=== PATIENT | male | born 1950 | race Caucasian/White ===

== ENCOUNTER 2021-04-07 14:18 | Emergency (ER) | payer MEDICARE, SELFPAY ==
[2021-04-07 14:19] VITALS: BP 147/83; PULSE 67; RESP 18; TEMP 36.6; O2SAT 98; BMI 29.0
--- NOTE | 2021-04-07 14:19 | NURSING ---
NO OLD EKGS
--- NOTE | 2021-04-07 14:41 | CT_ITS ---
HISTORY: chest pain. TECHNIQUE: Helically acquired images of the chest following IV contrast as per pulmonary angiogram protocol with 2D and 3D reconstructions. A radiation dose optimization technique was used for this scan. IV Contrast dosage and agent: 100 mL [id number]. # of images incl. paperwork: [id number]. COMPARISON: None. FINDINGS: CENTRAL AIRWAYS: Patent. LUNGS: Scattered small blebs. Calcified left upper lobe granuloma. Minimal dependent atelectasis. PLEURA: No pneumothorax or pleural effusion. PULMONARY ARTERIES: No filling defect. HEART/PERICARDIUM: Heart within normal limits in size. No significant pericardial effusion. Coronary artery disease. AORTA/GREAT VESSELS: No aortic aneurysm or dissection flap. MEDIASTINUM/KEYON: No enlarged lymph nodes. OSSEOUS STRUCTURES: Degenerative change. Chronic compression deformities in the lower thoracic and upper lumbar spine. T11-12 intervertebral disc fusion. Old sternal fracture. UPPER ABDOMEN: Small hiatal hernia. CT/CTA Chest W/WO Contrast IMPRESSION: No evidence for pulmonary embolism. Individualized dose optimization techniques were used for this CT. at 1552 Reported and signed by: Sherin Marquez MD Electronically Signed: Sherin Marquez MD at 15:50 EST Tel , Service support ,
--- NOTE | 2021-04-07 14:41 | EKG12_ITS ---
Test Reason : CP Blood Pressure : / mmHG Vent. Rate : 071 BPM Atrial Rate : 071 BPM P-R Int : 188 ms QRS Dur : 154 ms QT Int : 440 ms P-R-T Axes : 049 -58 022 degrees QTc Int : 478 ms Sinus rhythm with Premature supraventricular complexes Left axis deviation Right bundle branch block Abnormal ECG Confirmed by ASIF HUMMEL, LB ([id number]), makeup editor PALMIRA ABBASI ([id number]) on 04/09/2021 1:25:34 PM Referred By: DAVON Confirmed By:LB GOLD MD
--- NOTE | 2021-04-07 14:43 | ED.VIS.CHEST ---
HPI History of Present Illness Chief Complaint: Chest Pain Informant: patient Onset/Context/Timing Onset: Hours (2) Activity at onset: gradual Timing: Continuous Quality: Positive for Dull Location: Substernal Worsened By: Nothing Relieved By: - (Belching) Associated Symptoms: Positive for Dyspnea, Acid Reflux and Palpitations; Negative for Nausea, Vomiting, Diaphoresis, Cough, Fever and Lightheadedness Narrative Narrative: Patient presents with chest pain and shortness of breath that has been getting worse over the past 2 hours. Patient states the pain is over the substernal area. Patient states pain radiates into his back between her shoulder blades. Patient describes it as a severe dull pain. Patient states he was able to belch and his pain got better. Patient states nothing makes it worse. Patient admits to some reflux symptoms. Patient denies any nausea or vomiting. Patient denies any diaphoresis. Patient denies any cough or fevers. CVD Risk Factors: Positive for Hypertension and Hypercholesterolemia; Negative for Diabetes and Smoking PE Risk Factors: Negative for Recent Travel/Surgery, Prior DVT or PE and Cancer PFSH PFSH Home Medications ezetimibe mg 04/07/21 [History Last Taken Unknown] lisinopril 04/07/21 [History Last Taken Unknown] rosuvastatin mg 04/07/21 [History Last Taken Unknown] Allergy/AdvReac Type Severity Reaction Status Date / Time No Known Allergies Allergy Verified 04/07/21 14:18 Surgical History (Updated 04/07/21 @ 18:[address] Matteo Fraser DO) Hx of heart artery stent Social History Smoking Status: Never smoker ROS ROS ED Constitutional Constitutional ED: Denies chills or fever(s) Eyes Eyes: Denies blurry vision or change in vision ENT ENT ED: Reports sore throat; Denies rhinorrhea Cardiovascular Cardiovascular: Reports chest pain; Denies palpitations Respiratory/Chest Respiratory/Chest: Reports dyspnea; Denies cough Gastrointestinal Gastrointestinal: Reports nausea; Denies abdominal pain or vomiting Genitourinary Genitourinary ED: Denies dysuria or hematuria Musculoskeletal Musculoskeletal: Reports neck pain; Denies back pain Integumentary Denies abscess or rash Neurologic Neurologic: Denies headache(s) or weakness Allergic/Immunologic Allergic/Immunologic ED: Denies mouth swelling or urticaria EXAM Physical Exam Const Vital Signs: 04/07/21 14:19 04/07/21 15:10 04/07/21 15:15 Temperature 97.8 F Temperature Source Temporal Pulse Rate 67 Respiratory Rate 18 Respiratory Effort Normal Non-Labored Blood Pressure 147/83 H Blood Pressure Mean 104 Pulse Ox 98 Oxygen Delivery Method Room Air Room Air 04/07/21 16:00 04/07/21 17:59 04/07/21 18:42 Temperature Temperature Source Pulse Rate 66 66 76 Respiratory Rate 14 20 H 18 Respiratory Effort Blood Pressure 157/87 H 152/78 H 145/74 H Blood Pressure Mean 110 102 97 Pulse Ox 97 97 95 Oxygen Delivery Method Room Air Room Air Room Air Positive well nourished and well developed General Appearance ED: well developed HEENT normocephalic and atraumatic Eyes PERRL and EOMs intact bilaterally Neck supple and no JVD Chest Wall palpation of chest normal Resp normal respiratory effort and clear to auscultation bilaterally Effort and Inspection: Negative for respiratory distress Cardio regular rate, regular rhythm and no murmurs GI normal to inspection, nondistended, normoactive bowel sounds, soft to palpation, non-tender and non-distended Extremity normal to inspection General Extremety ED: Negative for edema or tenderness General Extremity: Negative for edema Neuro oriented x3, CN's II-XII intact bilaterally and no sensory deficits noted Sensorium / Orientation: awake and alert Motor Exam: strength 5/5 throughout Psych mental status grossly normal Heart Score History: Moderately Suspicious ECG: Normal Age: >/= 65 years Risk Factors: >/= 3 Risk Factors or History of CAD Troponin: </= Normal Limit Score: 5 MDM MDM MDM Narrative Medical decision making narrative: Patient was given IV fluids and morphine initially. Patient was given aspirin. EKG was obtained. On my interpretation, it shows a sinus rhythm with occasional PVCs. There is a right bundle branch block pattern. There is some left axis deviation at -58. OR interval, and QTc intervals were within normal limits. CBC and comprehensive metabolic profile were within normal limits. Initial high-sensitivity troponin was normal at 11, 2-hour repeat high-sensitivity troponin was elevated at 54. Since the patient was complaining of pain radiating into his shoulder blades, CTA of the chest was obtained. There is no aortic dissection noted. There is no pulmonary embolism noted. This was interpreted by the radiologist and reviewed by myself. Patient has a HEART score of 5. I recommended admission to the hospital for further evaluation. Patient states he does not want to stay in the hospital. Patient states he feels fine. Patient wants to go home. Patient was advised that this could be cardiac in nature. Patient was advised that this could be the beginning of cardiac ischemia which could develop into cardiac arrest or . Patient understands the risks. Patient will sign out AGAINST MEDICAL ADVICE. Patient was instructed return if worse in any way. Lab Data Attestation: I reviewed the patient's lab results. Labs: Laboratory Results - last 24 hr 04/07/21 04/07/21 04/07/21 14:23 14:23 16:23 WBC 8.4 RBC 4.67 Hgb 14.8 Hct 41.9 MCV 89.7 MCH 31.7 MCHC 35.3 RDW Std Deviation 36.3 RDW Coeff of Valerie 11.2 L Plt Count 259 MPV 9.5 Immature Gran % (Auto) 0.500 Neut % (Auto) 71.5 H Lymph % (Auto) 15.7 L [place] % (Auto) 9.6 Eos % (Auto) 1.7 Baso % (Auto) 1.0 Absolute Neuts (auto) 6.0 Absolute Lymphs (auto) 1.31 Nucleated RBC % 0 Sodium 135 L Potassium 3.7 Chloride 104 Carbon Dioxide 26.0 Anion Gap 5 BUN 18 Creatinine 1.26 Estim Creat Clear Calc 49.23 Est GFR (MDRD) Af Amer 73 Est GFR (MDRD) Non-Af 60 BUN/Creatinine Ratio 14.3 Glucose 130 H Calcium 9.2 Total Bilirubin 0.50 AST 21 ALT 36 Alkaline Phosphatase 74 Troponin I High Sens 11 54 Total Protein 7.3 Albumin 3.5 Globulin 3.8 Albumin/Globulin Ratio 0.9 Radiography Diagnostic Testing: Clinical Impression(s) from Imaging Studies Chest CTA 04/07/21 14:41 IMPRESSION: No evidence for pulmonary embolism. Individualized dose optimization techniques were used for this CT. at 1552 Reported and signed by: Sherin Marquez MD Electronically Signed: Sherin Marquez MD at 15:50 EST Tel , Service support , EKG Initial EKG: Attestation: I personally reviewed and interpreted this EKG as follows: Interpretation: Sinus Rhythm (71), No Acute Injury Pattern and RBBB Comments: Left axis deviation Prior EKG tracings: not available for review Discharge Plan Triage Chief Complaint: Chest Pain ED Provider: Matteo Fraser Dx/Rx/DC Orders Clinical Impression: Chest pain Instructions: ED Chest Pain, Uncertain Cause Prescriptions: No Action lisinopril 5 mg tablet RF: 0 ezetimibe 10 mg tablet RF: 0 rosuvastatin 10 mg tablet RF: 0 Primary Care Provider: Saroj Ty Referrals: Saroj Ty MD [Primary Care Provider] - 3-5 Days Disposition Disposition: Against Medical Advice Discharge Date/Time: 04/07/21 19:05
[2021-04-07 14:46] LABS: Absolute Lymphocyte Count 1.31 X10^3/uL (0.83-4.51); Basophil# 0.08 X10^3/uL; Eosinophil# 0.14 X10^3/uL; Eosinophils% 1.7 % (0-5); Hematocrit 41.9 % (40-54); Hemoglobin 14.8 g/dL (13.0-16.5); Lymphocyte # 1.31 X10^3/ul (0.83-4.51); Lymphocyte % 15.7 % (19-41); Mean Corp Hgb Conc 35.3 g/dL (32-36); Mean Corpuscular Hgb 31.7 pg (27.0-32.0); Mean Corpuscular Volume 89.7 fL (80-94); Mean Platelet Vol. 9.5 fl (6.2-12.0); Monocyte% 9.6 % (0-10); NRBC Flagged by Analyzer 0 % (0-5); Neutrophil # 5.98 X10^3/uL (2.7-7.7); Neutrophil % 71.5 % (47-70); Platelet Count 259 K/mm3 (150-450); RBC Distribution Width CV 11.2 % (11.6-14.6); RBC Distribution Width SD 36.3 fl (35.1-43.9); Red Blood Count 4.67 M/mm3 (4.6-6.2); White Blood Count 8.4 K/mm3 (4.4-11.0)
[2021-04-07 15:09] LABS: ALB/GLOB Ratio 0.9 RATIO (0.9-2.4); AST(SGOT) 21 U/L (15-37); Alanine Aminotransfer ALT/SGPT 36 U/L (16-61); Albumin, Serum 3.5 g/dL (3.2-5.0); Alkaline Phosphatase 74 U/L (45-117); Anion Gap 5 (5-15); BUN 18 mg/dL (7-18); BUN/Creat Ratio 14.3 RATIO (10-20); Calcium,Total 9.2 mg/dL (8.5-10.1); Chloride 104 mmol/L (98-107); Creatinine, Serum 1.26 mg/dL (0.70-1.30); EST Glomerular Filtration Rate 60 mL/min (>60); Est Glom Filt Rate - Afr Amer 73 mL/min (>60); Estimated Creatinine Clearance 49.23 ml/min; Globulin 3.8 g/dL (2.2-4.2); Glucose 130 mg/dL (74-106); Potassium 3.7 mmol/L (3.5-5.1); Protein, Total 7.3 g/dL (6.4-8.2); Sodium Level 135 mmol/L (136-145); Troponin-I HS 11 pg/mL (3.0-78.0)
[2021-04-07] MEDS: Morphine 4 MG/ML Syringe IV (15:11)
[2021-04-07] MEDS: 0.9% Normal Saline 1,000 ML 1000 ML IV (15:12)
[2021-04-07 16:00] VITALS: BP 157/87; PULSE 66; RESP 14; O2SAT 97
[2021-04-07 17:15] LABS: Troponin-I HS 54 pg/mL (3.0-78.0)
[2021-04-07 17:59] VITALS: BP 152/78; PULSE 66; RESP 20; O2SAT 97
[2021-04-07] MEDS: Aspirin 81 MG TAB.CHEW 324 MG PO (18:41)
[2021-04-07 18:42] VITALS: BP 145/74; PULSE 76; RESP 18; O2SAT 95
== END 2021-04-07 19:05 | disposition left against medical advice (07) ==
PROVIDERS: Emergency Provider Emergency Medicine; PCP Family Medicine
DX: R07.9 Chest pain, unspecified (principal); I49.1 Atrial premature depolarization; R06.02 Shortness of breath; I10 Essential (primary) hypertension; E78.00 Pure hypercholesterolemia, unspecified; Z79.899 Other long term (current) drug therapy; Z95.5 Presence of coronary angioplasty implant and graft
CPT/HCPCS: 71275; 80053; 84484; 85025; 93005; 96361; 96374; 99283; J7030; Q9967; A4216